=== PATIENT | male | born 1980 | race Caucasian/White ===

== ENCOUNTER 2021-02-21 17:46 | Emergency (ER) | payer OTHER ==
[2021-02-21] MEDS ORDERED: IOVERSOL 320 100 ML VIAL IVP ONE ×2 (18:03→19:41)
[2021-02-21 18:07] LABS: BASOPHILS % (AUTO) 0.3 %; EOSINOPHILS # (AUTO) 0.1 10^3/uL (0.0-0.7); EOSINOPHILS % (AUTO) 0.8 %; HCT - HEMATOCRIT 43.5 % (42.0-52.0); HGB - HEMOGLOBIN 14.9 g/dL (14.0-18.0); LYMPHOCYTES # (AUTO) 3.2 10^3/uL (1.5-3.5); LYMPHOCYTES % (AUTO) 28.1 %; MEAN CORPUSCULAR HEMOGLOBIN 31.2 pg (27.0-31.0); MEAN CORPUSCULAR HGB CONC 34.3 g/dL (32.0-36.0); MEAN CORPUSCULAR VOLUME 91.2 fL (80.0-94.0); MEAN PLATELET VOLUME 11.3 fL (7.4-11.4); MONOCYTES % (AUTO) 8.7 %; NEUTROPHILS # (AUTO) 7.1 10^3/uL (1.5-6.6); NEUTROPHILS % (AUTO) 61.8 %; PLT - PLATELET COUNT 192 10^3/uL (130-450); RED BLOOD COUNT 4.77 10^6/uL (4.70-6.10); RED CELL DISTRIBUTION WIDTH 12.3 % (12.0-15.0); WHITE BLOOD COUNT 11.5 x10^3/uL (4.8-10.8)
[2021-02-21 18:10] LABS: BILIRUBIN,URINE NEGATIVE (NEGATIVE); GLUCOSE, URINE (UA) NEGATIVE (NEGATIVE); KETONES,URINE (UA) NEGATIVE (NEGATIVE); LEUKOCYTE ESTERASE, URINE NEGATIVE (NEGATIVE); NITRITE,URINE NEGATIVE (NEGATIVE); OCCULT BLOOD,URINE MODERATE (NEGATIVE); PH,URINE 5.5 PH (5.0-7.5); PROTEIN,URINE NEGATIVE (NEGATIVE); UROBILINOGEN,URINE 0.2 (NORMAL) E.U./dL (NORMAL)
[2021-02-21 18:13] LABS: CLARITY,URINE CLEAR (CLEAR)
[2021-02-21 18:23] LABS: ALBUMIN 4.8 g/dL (3.2-5.5); ALBUMIN/GLOBULIN RATIO 1.5 (1.0-2.2); BILIRUBIN,TOTAL 1.2 mg/dL (0.2-1.0); CALCIUM 8.9 mg/dL (8.5-10.3); CREATININE 0.9 mg/dL (0.6-1.2); POTASSIUM 3.5 mmol/L (3.5-5.0); TOTAL PROTEIN 7.9 g/dL (6.7-8.2)
--- NOTE | 2021-02-21 18:26 | ED Physician Documentation ---
History of Present Illness - Stated complaint Stated Complaint: LLQ ABD PX - Chief complaint Chief Complaint: Abd Pain - Additonal information Additional information: 40-year-old male presents emergency department for evaluation of acute left lower quadrant abdominal pain which began 4 days ago. Initially presented is mild but has now begun constant in nature. Worse with any movement. Though he has had no changes in his bowel habits he thought perhaps he may be mildly constipated therefore he took laxatives which have not improve the symptoms. He does have a history of left-sided renal colic but this feels distinctly different. No dysuria urgency frequency or hematuria. Patient was seen at primary care/urgent care and advised to come to the ER for concern of possible diverticulitis. Review of Systems Constitutional: reports: Chills. denies: Fever, Myalgias Eyes: reports: Reviewed and negative Ears: reports: Reviewed and negative Nose: reports: Reviewed and negative Throat: reports: Reviewed and negative Cardiac: reports: Reviewed and negative Respiratory: reports: Reviewed and negative GI: reports: Abdominal Pain. denies: Nausea, Vomiting, Constipation, Diarrhea, Hematemesis, Bloody / black stool : denies: Dysuria, Frequency, Hematuria Skin: reports: Reviewed and negative Musculoskeletal: reports: Reviewed and negative Neurologic: reports: Reviewed and negative PD PAST MEDICAL HISTORY - Present Medications Home Medications: Ambulatory Orders Medication Instructions Recorded Confirmed Amox/Clav 875/125 [Augmentin] 1 each PO Q12H #14 tablet 02/21/21 HYDROcod/ACETAM 5/325 [Sartell 5/325] 1 tab PO BID PRN #10 tablet 02/21/21 Ibuprofen [Motrin] 600 mg PO Q6H PRN #20 tab 02/21/21 - Allergies Allergies/Adverse Reactions: Allergies Allergy/AdvReac Type Severity Reaction Status Date / Time No Known Drug Allergies Allergy Verified 02/21/21 18:26 PD ED PE NORMAL - General General: Alert and oriented X 3, No acute distress - HEENT HEENT: PERRL - Neck Neck: Supple, no meningeal sign - Cardiac Cardiac: RRR, No murmur - Respiratory Respiratory: Clear bilaterally - Abdomen Abdomen: Normal bowel sounds, Soft. No: Non tender (Focal tenderness left lower abdomen with mild rebound. No guarding. No flank or CVA tenderness. Negative Garcia's negative McBurney's. ) - Male Male : Deferred - Back Back: No CVA TTP, No spinal TTP - Derm Derm: Warm and dry, No rash - Extremities Extremities: No deformity - Neuro Neuro: Alert and oriented X 3 Eye Opening: Spontaneous Motor: Obeys Commands Verbal: Oriented GCS Score: 15 - Psych Psych: Normal mood Results - Vitals Vitals: Vital Signs - 24 hr 02/21/21 02/21/21 17:49 20:21 Temperature 37.1 C Heart Rate 66 67 Respiratory 16 18 Rate Blood Pressure 140/96 H 150/101 H O2 Saturation 100 100 Oxygen O2 Source Room air - Labs Labs: Laboratory Tests 02/21/21 02/21/21 02/21/21 18:01 18:01 18:03 WBC 11.5 H RBC 4.77 Hgb 14.9 Hct 43.5 MCV 91.2 MCH 31.2 H MCHC 34.3 RDW 12.3 Plt Count 192 MPV 11.3 Neut # (Auto) 7.1 H Lymph # (Auto) 3.2 [place] # (Auto) 1.0 Eos # (Auto) 0.1 Baso # (Auto) 0.0 Absolute Nucleated RBC 0.00 Nucleated RBC % 0.0 Sodium 138 Potassium 3.5 Chloride 101 Carbon Dioxide 29 Anion Gap 8.0 BUN 12 Creatinine 0.9 Estimated GFR (MDRD) 93 Glucose 102 H Calcium 8.9 Total Bilirubin 1.2 H AST 20 ALT 36 Alkaline Phosphatase 97 Total Protein 7.9 Albumin 4.8 Globulin 3.1 Albumin/Globulin Ratio 1.5 Lipase 28 Urine Color YELLOW Urine Clarity CLEAR Urine pH 5.5 Ur Specific [place] 1.025 Urine Protein NEGATIVE Urine Glucose (UA) NEGATIVE Urine Ketones NEGATIVE Urine Occult Blood MODERATE H Urine Nitrite NEGATIVE Urine Bilirubin NEGATIVE Urine Urobilinogen 0.2 (NORMAL) Ur Leukocyte Esterase NEGATIVE Urine RBC 11-25 H Urine WBC 0-3 Ur Squamous Epith Cells RARE Squamous Urine Bacteria Rare Ur Microscopic Review INDICATED Urine Culture Comments NOT INDICATED - Rads (name of study) CXR Radiology: Final report received (Indistinct left perihilar opacity is nonspecific but may represent an atypical infection) CT abd Radiology: Final report received (Pericolonic fat stranding anterior to the sigmoid colon likely representing up low back appendagitis. No associated diverticulum to suggest diverticulitis. Mild segmental wall thickening and enhancement of the sigmoid colon suggestive of a mild colitis. Bilateral nephrolithiasis w/o obstruction) PD MEDICAL DECISION MAKING - ED course Complexity details: reviewed results, re-evaluated patient, d/w patient, d/w family, d/w campaign consultant ([place]) ED course: 40-year-old male presents the emergency department for evaluation of 4 days of left lower quadrant abdominal pain. He has no fevers vomiting or diarrhea. On exam he is quite tender in the left lower quadrant with some rebound but no guarding. Screening labs show a very mild leukocytosis with a white count of 11.5. Otherwise screening electrolytes are unremarkable. His urine does show some painless hematuria without infection. A CT of the abdomen was completed to rule out diverticulitis or appendicitis. Reassuringly appendicitis is not seen however it does suggest pericolonic fat stranding likely representing epiploic appendagitis versus an omental infarct. There is also segmental wall thickening of the sigmoid colon suggestive of a mild colitis. In addition multiple nonobstructing nephrolithiasis bilaterally The CT findings were discussed with Dr. Thomas surgeon on-call. At this time she recommends analgesia at home in the form of ibuprofen or hydrocodone. She would also recommend a course of antibiotics for the colitis as well as the omental infarct. She would like to see him in office in follow-up. Given the young age of which colitis is seen he would benefit from a colonoscopy. CT imaging findings were discussed at length with the patient and his . They are in agreement to continue with antibiotics and analgesia at home. Emergent return precautions were discussed for worsening pain, fevers black or bloody stools or failure of symptoms to resolve. I am prescribing a short course of short-acting opioid pain medication for this patient. I have reviewed the patients MANAGER LOCATION and no concerning findings were noted. I have discussed that the opioids are for short term therapy only, and will not be refilled from the ED. Departure - Departure Disposition: 01 Home, Self Care Clinical Impression: Epiploic appendagitis, Bilateral kidney stones, Colitis Condition: Stable Record reviewed to determine appropriate education?: Yes Instructions: Abdominal Pain Follow-Up: Tato Robin MD [Provider Admit Priv/Credential] - Prescriptions: Amox/Clav 875/125 [Augmentin] 1 each PO Q12H #14 tablet Ibuprofen [Motrin] 600 mg PO Q6H PRN #20 tab PRN Reason: Pain HYDROcod/ACETAM 5/325 [Sartell 5/325] 1 tab PO BID PRN #10 tablet PRN Reason: Pain Comments: Srinivasan you were seen today in the emergency department for left lower quadrant abdominal pain for 4 days. Your screening labs were all essentially unremarkable. You do have blood in your urine but I am attributing this to the findings of nonobstructing kidney stones on the CAT scan. As we discussed the cause of your lower abdominal pain is a mild colitis for which I would like you to take the Augmentin which is an antibiotic as well as epiploic appendagitis. This is an inflammation of the fat-containing sacs around the omentum. This can be very painful. I would like you to take the ibuprofen with food 2-3 times a day. For worsening pain please take the hydrocodone. Because you do have a mild colitis at such an early age I would like you to follow-up with Dr. Robin in the surgery clinic. You may benefit from an early colonoscopy. Return to the emergency department if you develop fevers, the pain fails to resolve or suddenly worsens, you have uncontrolled vomiting or any black or bloody stools.
[2021-02-21 18:34] LABS: BACTERIA,URINE Rare /HPF (None Seen); SQUAMOUS EPITHELIAL CELL,UR RARE Squamous (<= Few); WBC,URINE 0-3 /HPF (0-3)
--- NOTE | 2021-02-21 20:07 | CT Report ---
PROCEDURE: Abdomen/Pelvis W INDICATIONS: LLQ Abdominal pain, diverticulitis suspected CONTRAST: IV CONTRAST: Optiray 320 ml: 100 PO CONTRAST: *NO PO CONTRAST TECHNIQUE: After the administration of intravenous contrast, 5 mm thick sections acquired from the diaphragms t o the symphysis. 5 mm thick coronal and sagittal reformats were acquired. For radiation dose reduct ion, the following was used: automated exposure control, adjustment of mA and/or kV according to pat ient size. COMPARISON: None. FINDINGS: Image quality: Excellent. ABDOMEN: Lung bases: There is mild dependent atelectasis. Heart size is normal. Solid organs: Evaluation of the liver demonstrates no focal hepatic lesions. Gallbladder appears wit hin normal limits without calcified gallstones. Biliary system is non dilated. The spleen is normal in size. Pancreas enhances normally without peripancreatic fat stranding or fluid collections. No ad renal nodules. Kidneys demonstrate no hydronephrosis. There are bilateral nonobstructing renal stone s including a stone in the left renal pelvis measuring up to 0.6 cm. A smaller stone in the left kidn ey measures up to 0.3 cm. In the right kidney, there is a 0.4 cm nonobstructing stone. The ureters ar e nondistended. Peritoneum and bowel: Small bowel loops demonstrate normal wall thickness and caliber. The appendix i s normal in appearance. There is pericolonic fat stranding anterior to the proximal sigmoid colon. No discrete associated colonic diverticulum identified. There is fat density centrally within this grey on of pericolonic inflammatory change. The findings likely represent epiploic appendagitis, versus an omental infarct. The sigmoid colon also demonstrates mild wall thickening and enhancement suggestive of a mild colitis. There is a small amount of free fluid in the pelvis. No free air. Nodes and vessels: No retroperitoneal or mesenteric adenopathy by size criteria. Aorta and inferior vena cava are normal in size. Miscellaneous: No ventral hernias. PELVIS: Genitourinary: Bladder wall thickness is normal. Miscellaneous: No inguinal hernias or adenopathy. Bones: No suspicious bony lesions. No vertebral body compression fractures. IMPRESSION: 1. Pericolonic fat stranding anterior to the sigmoid colon likely representing epiploic appendagitis. The differential includes an omental infarct. No associated colonic diverticulum to suggest divertic ulitis. 2. Mild segmental wall thickening and enhancement in the sigmoid colon suggestive of a mild colitis. 3. Bilateral nephrolithiasis without evidence of obstructive uropathy. Reviewed by: You Johnston MD on 02/21/2021 8:06 PM PDT Approved by: You Johnston MD on 02/21/2021 8:06 PM PDT Station ID: [id number]
[2021-02-21 20:22] VITALS: BP 150/101
[2021-02-21] MEDS ORDERED: HYDROcod/ACETAM 5/325 MG TABLET PO STA (20:33)
[2021-02-21] MEDS ORDERED: AMOX/CLAV 875 MG/125 MG TABLET PO STA (20:33)
== END 2021-02-21 20:54 | disposition home or self-care (01) ==
LOC: ED 17:46
DX: K52.9 Noninfective gastroenteritis and colitis, unspecified (principal); K63.89 Other specified diseases of intestine; N20.0 Calculus of kidney; R31.9 Hematuria, unspecified
CPT/HCPCS: 36415; 74177; 80053; 81001; 83690; 85025; 99283; 99284; A9270; Q9967; 81003; 87086

== ENCOUNTER 2021-10-28 08:00 | Outpatient (CLI) | payer OTHER ==
[2021-10-28 21:16] LABS: BILIRUBIN,URINE NEGATIVE (NEGATIVE); GLUCOSE, URINE (UA) NEGATIVE (NEGATIVE); KETONES,URINE (UA) NEGATIVE (NEGATIVE); LEUKOCYTE ESTERASE, URINE NEGATIVE (NEGATIVE); NITRITE,URINE NEGATIVE (NEGATIVE); OCCULT BLOOD,URINE SMALL (NEGATIVE); PH,URINE 6.5 PH (5.0-7.5); PROTEIN,URINE NEGATIVE (NEGATIVE); UROBILINOGEN,URINE 0.2 (NORMAL) E.U./dL (NORMAL)
[2021-10-28 21:38] LABS: BACTERIA,URINE None Seen /HPF (None Seen); CLARITY,URINE CLEAR (CLEAR); RBC,URINE 0-5 /HPF (0-5); SQUAMOUS EPITHELIAL CELL,UR NONE SEEN (<= Few); WBC,URINE 0-3 /HPF (0-3)
== END 2021-10-28 23:59 ==
LOC: LAB 08:00
PROVIDERS: ATTEND Nurse Practitioner
DX: R30.0 Dysuria (principal)
CPT/HCPCS: 81001; 87086

== ENCOUNTER 2021-11-01 08:00 | Outpatient (CLI) | payer OTHER ==
[2021-11-01 12:18] LABS: BILIRUBIN,URINE NEGATIVE (NEGATIVE); GLUCOSE, URINE (UA) NEGATIVE (NEGATIVE); KETONES,URINE (UA) NEGATIVE (NEGATIVE); LEUKOCYTE ESTERASE, URINE NEGATIVE (NEGATIVE); NITRITE,URINE NEGATIVE (NEGATIVE); OCCULT BLOOD,URINE SMALL (NEGATIVE); PROTEIN,URINE NEGATIVE (NEGATIVE); UROBILINOGEN,URINE 0.2 (NORMAL) E.U./dL (NORMAL)
[2021-11-01 12:29] LABS: CLARITY,URINE CLEAR (CLEAR); RBC,URINE 0-5 /HPF (0-5); WBC,URINE 0-3 /HPF (0-3)
[2021-11-01 12:30] LABS: BACTERIA,URINE Rare /HPF (None Seen); SQUAMOUS EPITHELIAL CELL,UR NONE SEEN (<= Few)
== END 2021-11-01 23:59 | disposition home or self-care (01) ==
LOC: LAB 08:00
PROVIDERS: ATTEND Physician Assistant
DX: R30.0 Dysuria (principal)
CPT/HCPCS: 81001; 81003; 87086